=== PATIENT | female | born 1950 | race Hispanic/Latino ===

== ENCOUNTER 2018-05-03 05:47 | Day surgery (SDC) | payer MEDICARE ==
[~2018-05-03] VITALS: Ht 157.5 cm; Wt 78.1 kg
[~2018-05-03 05:47] MED LIST: FURO-151 PO; SODIUM CHLORIDE 0.9% 1000ML 1,000 ML IV ONE; SPIR50TA5 PO
[2018-05-03 06:09] VITALS: BP 110/61
[2018-05-03 06:23] LABS: CREATININE 0.8 mg/dL (0.5-1.5)
[2018-05-03] MEDS ORDERED: PROPOFOL 10 MG/ML 20ML VIAL IV ONE (07:52)
[2018-05-03 08:03] VITALS: BP 136/73
[2018-05-03] MEDS ORDERED: PHENYLEPHRINE HCL 10 MG/ML 1ML VIAL IV ONE (08:03)
[2018-05-03 08:08] VITALS: BP 106/51
[2018-05-03 08:13] VITALS: BP 100/55
[2018-05-03 08:20] VITALS: BP 114/71
== END 2018-05-03 08:35 | disposition home or self-care (01) ==
LOC: ENDO 05:47 → DAH 05:47 → ENDO 08:35
PROVIDERS: ATTEND Internal Medicine
DX: K29.50 Unspecified chronic gastritis without bleeding (principal); J45.909 Unspecified asthma, uncomplicated; Z79.899 Other long term (current) drug therapy; Z98.890 Other specified postprocedural states; Z88.8 Allergy status to other drugs, medicaments and biological substances; K74.0 Hepatic fibrosis
CPT/HCPCS: 36415; 43239; 80048; 88305; 88312; 88342; A4606; J2370; J2704; J7030